=== PATIENT | male | born 1955 | race Caucasian/White ===

== ENCOUNTER → 2018-07-15 | Outpatient (CLI) | payer BC ==
[~2018-07-15] MED LIST: ALPR0.5T6 PO; AMLO1TAB97 PO; ATOR40TA59 PO; SITA1TAB11 PO
--- NOTE | 2018-07-15 11:36 | KCIC ---
EXAMINATION: Magnetic resonance imaging (MRI) of the lumbar spine without contrast 07/15/2018 9:30 AM HISTORY: Back pain and bilateral leg weakness TECHNIQUE: Multiplanar multi-weighted MRI of the lumbar spine was performed without intravenous contrast using the standard lumbar spine protocol. Contrast information: None administered. COMPARISON: None available. FINDINGS: There is minimal retrolisthesis of L3 on L4. Schmorl's nodes are identified involving the superior and inferior endplates of L1, L2 and L3. There is mild disc height loss at L1-L2 with vacuum disc phenomenon. There is endplate remodeling at L1-L2 and L3-L4. Marrow signal intensity is normal in all sequences with exception of minimal edema associated with an inferior endplate Schmorl's node at L2. Distal spinal cord signal intensity is normal in all sequences. The conus medullaris terminates at L1. 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 Visualized portions of the retroperitoneum appear normal. Abdominal aorta is normal in caliber. Visualized portions of the sacrum appear intact. L2-L3: There is a circumferential disc bulge. There is a left foraminal disc protrusion. There is mild to moderate facet arthropathy. There is mild spinal canal stenosis. There is mild right and moderate left neuroforaminal stenosis. L3-L4: There is a circumferential disc bulge with left far lateral disc protrusion. There is moderate facet arthropathy. There is ligamentum flavum infolding. There is moderate bilateral neuroforaminal stenosis, left greater than right. There is moderate spinal canal stenosis. L4-L5: There is a circumferential disc bulge. There is moderate facet arthropathy. There is mild to moderate bilateral neuroforaminal stenosis. There is mild spinal canal stenosis. L5-S1: Disc is normal in configuration. There is moderate facet arthropathy. There is no significant neuroforaminal or spinal canal stenosis. IMPRESSION: Mild to moderate degenerative changes of the lumbar spine as described in detail above. Electronically signed by: Renee Ko MD (07/15/2018 11:33 AM) [id number]
== END | disposition home or self-care (01) ==
LOC: KCIC MRI 09:06
DX: M47.896 Other spondylosis, lumbar region (principal); M12.88 Other specific arthropathies, not elsewhere classified, other specified site; M48.061 Spinal stenosis, lumbar region without neurogenic claudication; M51.26 Other intervertebral disc displacement, lumbar region
CPT/HCPCS: 72148